=== PATIENT | female | born 1975 | race American Indian/Alaskan Native ===

== ENCOUNTER 2017-03-05 18:16 | Emergency (ER) | payer BC ==
[2017-03-05 18:59] LABS: Basophils % (Auto) 0.9 % (0.0-1.8); Eosinophils % (Auto) 2.8 % (0.0-4.3); Hematocrit 37.8 % (30.3-42.9); Hemoglobin 13.2 gm/dl (10.1-14.3); Mean Corpuscular HGB Conc 35 % (30-34); Mean Corpuscular Hemoglobin 32 pg (28-32); Mean Corpuscular Volume 90 fl (79-97); Platelet Count 242 K/mm3 (140-440); Red Blood Count 4.21 M/mm3 (3.65-5.03); Red Cell Distribution Width 12.8 % (13.2-15.2); White Blood Count 5.2 K/mm3 (4.5-11.0)
[2017-03-05] MEDS ORDERED: NACL 0.9% 1000 ML 1,000 ML IV ONE (19:19)
[2017-03-05 19:23] LABS: Anion Gap 16 mmol/L; Blood Urea Nitrogen 12 mg/dL (7-17); Calcium 9.3 mg/dL (8.4-10.2); Carbon Dioxide 26 mmol/L (22-30); Chloride 103.8 mmol/L (98-107); Glucose 111 mg/dL (65-100); Potassium 3.6 mmol/L (3.6-5.0); Sodium 142 mmol/L (137-145)
--- NOTE | 2017-03-05 19:47 | Emergency Department Report ---
HPI - General Chief Complaint: Overdose Time Seen by Provider: 03/05/17 19:04 - HPI HPI: Patient is a 41-year-old -[place] female, who took unknown amount of Percocet, Klonopin, Robaxin, trying to hurt herself. Patient is accompanied by sister in the ER, patient stated that she just wanted to go to sleep and not wake up due to severe anxiety and stressors. Patient denied any prior episode of suicidal ideations or suicidal attempts. Patient took the pills about 3 hours prior to ER presentation. ED Past Medical Hx - Past Medical History Hx Hypertension: Yes Additional medical history: BRISEIDA-pt states "leave me alone" - Surgical History Past Surgical History?: No Additional Surgical History: BRISEIDA - Family History Family history: hypertension - Social History Smoking Status: Unknown if ever smoked - Medications Home Medications: Home Medications Medication Instructions Recorded Confirmed Last Taken Type Amlodipine Besylate [Norvasc] 10 mg PO DAILY 03/05/17 03/05/17 Unknown History Methocarbamol [Robaxin TAB] 750 mg PO TID 03/05/17 03/05/17 Unknown History Metoprolol Xl [Metoprolol 25 mg PO QDAY 03/05/17 03/05/17 Unknown History SUCCINATE ER TAB] Pantoprazole Sodium 40 mg PO DAILY 03/05/17 03/05/17 Unknown History Sertraline HCl [Zoloft] 100 mg PO DAILY 03/05/17 03/05/17 Unknown History clonazePAM 1 mg PO BID 03/05/17 03/05/17 Unknown History ED Review of Systems ROS: Stated complaint: POSS SUICIDE ATTEMPT Other details as noted in HPI Comment: All other systems reviewed and negative Neurological: as per HPI Psychiatric: anxiety, depression, suicidal thoughts Physical Exam - Physical Exam Vital Signs: Vital Signs 03/05/17 18:33 Pulse Rate 60 Respiratory 10 L Rate Blood Pressure 139/73 [Right] O2 Sat by Pulse 99 Oximetry Physical Exam: Gen. alert and oriented 3 in no distress Head atraumatic normocephalic Eyes PERR LA EOMI Chest regular rate and rhythm normal S1-S2 lungs clear bilaterally Abdomen soft nondistended Back no point tenderness paravertebral tenderness Neuro no focal deficit. Psych: Depressed mood, flat affect, suicidal ideations. ED Course Vital Signs 03/05/17 18:33 Pulse Rate 60 Respiratory 10 L Rate Blood Pressure 139/73 [Right] O2 Sat by Pulse 99 Oximetry ED Medical Decision Making - Lab Data Result diagrams: 03/05/17 18:44 03/05/17 18:44 Critical care attestation.: If time is entered above; I have spent that time in minutes in the direct care of this critically ill patient, excluding procedure time. ED Disposition Clinical Impression: Suicidal ideations Disposition: [id number] PSY HOSP/PSY UNIT Is pt being admited?: No Does the pt Need Aspirin: No Condition: Stable Referrals: PRIMARY CARE, [Primary Care Provider] - 3-5 Days Forms: Accompanied Note
[2017-03-05 20:21] VITALS: BP 126/73
[2017-03-05 20:38] LABS: Urine Drugs of Abuse Note Disclamer
[2017-03-05 20:50] LABS: Bilirubin,Urine NEG (Negative); Blood,Urine NEG (Negative); Ketones,Urine NEG (Negative); Leukocyte Esterase,Urine NEG (Negative); Mucus,Urine FEW /HPF; Nitrite,Urine NEG (Negative); Protein,Urine <15 mg/dL mg/dL (Negative); Urobilinogen,Urine < 2.0 mg/dL (<2.0)
== END 2017-03-06 01:30 ==
LOC: ED 18:16 → EEVIPCON 18:16 → ED 03-06 01:30
DX: R45.851 Suicidal ideations (principal); I10 Essential (primary) hypertension
CPT/HCPCS: 36415; 80048; 80307; 81001; 84703; 85025; 96360; 99284; G0480; J7030; 80320